=== PATIENT | female | born 1940 | race Native Hawaiian/Other Pacific Islander ===

== ENCOUNTER 2017-07-18 12:35 | Outpatient (CLI) | payer OTHER | END 2017-07-18 21:41 | disposition home or self-care (01) | LOC: RAD 12:35 | DX: J01.80 Other acute sinusitis (principal) ==

== ENCOUNTER 2017-10-12 09:51 | Outpatient (CLI) | payer OTHER | END 2017-10-12 19:45 | disposition home or self-care (01) | LOC: CT 09:51 | DX: G44.211 Episodic tension-type headache, intractable (principal) ==

== ENCOUNTER 2018-01-04 09:33 | Outpatient (CLI) | payer OTHER ==
[2018-01-04 10:15] LABS: PLATELET COUNT 189 K/uL (152-353); POTASSIUM 4.1 mmol/L (3.6-5.2)
== END 2018-01-04 20:17 | disposition home or self-care (01) ==
LOC: LABW 09:33
PROVIDERS: Internal Medicine
DX: R06.02 Shortness of breath (principal)
CPT/HCPCS: 36415; 80048; 85027; Q9963